=== PATIENT | female | born 1980 | race American Indian/Alaskan Native ===

== ENCOUNTER 2017-07-22 18:47 | Emergency (ER) | payer MEDICAID ==
[2017-07-22 18:55] VITALS: BP 115/73; PULSE 86; RESP 16; TEMP 97.4; O2SAT 99
--- NOTE | 2017-07-22 19:28 | ED PDOC ---
HPI: Abdomen Time Seen by Provider: 07/22/17 19:03 Chief Complaint (Nursing): Female Genitourinary History Per: Patient Onset/Duration Of Symptoms: Days Outside of [place] travel?: No Current Symptoms Are (Timing): Still Present Location Of Pain/Discomfort: Suprapubic Quality Of Discomfort: Cramping Associated Symptoms: denies: Fever, Chills, Nausea, Vomiting, Diarrhea Additional Complaint(s): Hx of asthma, p/w suprapubic pain, states she was due for her menstrual period around the of this month, states that from the 02-11 she had persistent heavy vaginal bleeding that has now resolved, but still has cramping lower abdominal/suprapubic pain, concerned that she is having a miscarriage. States she is taking prenatals and is actively trying to have a child. Denies nausea, vomiting, diarrhea, constipation, urinary symptoms. No fevers, chills. Past Medical History Reviewed: Historical Data, Nursing Documentation, Vital Signs Vital Signs: Last Vital Signs Temp 97.4 F L 07/22/17 18:51 Pulse 86 07/22/17 18:51 Resp 16 07/22/17 18:51 BP 115/73 07/22/17 18:51 Pulse Ox 99 07/22/17 19:30 - Medical History PMH: Asthma - Family History Family History: States: Unknown Family Hx - Home Medications Home Medications: Ambulatory Orders Medication Instructions Recorded Naproxen [Naprosyn] 500 mg PO BID #30 tablet 07/22/17 - Allergies Allergies/Adverse Reactions: Allergies Allergy/AdvReac Type Severity Reaction Status Date / Time coconut Allergy ITCHING Verified 07/22/17 18:51 Review of Systems ROS Statement: Except As Marked, All Systems Reviewed And Found Negative Gastrointestinal: Positive for: Abdominal Pain Physical Exam - Reviewed Nursing Documentation Reviewed: Yes Vital Signs Reviewed: Yes - Physical Exam Appears: Positive for: Well, Non-toxic, No Acute Distress Head Exam: Positive for: ATRAUMATIC, NORMAL INSPECTION, NORMOCEPHALIC Skin: Positive for: Normal Color, Warm, DRY Eye Exam: Positive for: EOMI, Normal appearance, PERRL ENT: Positive for: Normal ENT Inspection Neck: Positive for: Normal, Painless ROM Cardiovascular/Chest: Positive for: Regular Rate, Rhythm Respiratory: Positive for: CNT, Normal Breath Sounds Gastrointestinal/Abdominal: Positive for: Normal Exam, Soft Back: Positive for: Normal Inspection Extremity: Positive for: Normal ROM Neurologic/Psych: Positive for: Alert, Oriented - Laboratory Results Result Diagrams: 07/22/17 19:50 07/22/17 19:50 - ECG O2 Sat by Pulse Oximetry: 99 Medical Decision Making Medical Decision Makin:15PM A/P: Hx of asthma p/w suprapubic pain, resolved VB -concerned for possible miscarriage v. threatened Ab v. ectopic v. normal -will get labs, U/S -patient pain free at this time, comfortable appearing, normal vitals -will re-eval 10:00PM EXAM: US , Transvaginal CLINICAL HISTORY: 36 years old, female; Signs and symptoms; Lmp or gestational age (in weeks): 03/17; Other: Bleeding; Additional info: 7 wks preg, vb TECHNIQUE: Real-time transvaginal obstetrical ultrasound of the maternal pelvis and a first trimester with image documentation. Transvaginal imaging was used for better evaluation of the fetus and adnexa. COMPARISON: No relevant prior studies available. FINDINGS: Gestation: No intrauterine gestational sac. Uterus/cervix: Endometrium: 0.7 cm in thickness. Closed cervix. Ovaries: Normal ovaries. No adnexal masses. Free fluid: No significant free fluid. IMPRESSION: 1. No intrauterine gestation. DDX: Early IUP, missed , ectopic . Explained to patient that there are no signs of , possibly representing completed Ab, advised patient to followup with [facility] in 1 - 2 days for checkup. Return precautions given. Disposition - Clinical Impression Clinical Impression: Abdominal cramping - Disposition Referrals: Shirley Zhu MD [Family Provider[facility] - [facility]] Disposition: Routine/Home Disposition Time: 22:04 Condition: STABLE Additional Instructions: Please followup with your [facility] as soon as possible. Prescriptions: Naproxen [Naprosyn] 500 mg PO BID #30 tablet Instructions: Acute Abdomen (Belly Pain), Adult (DC) Forms: [employer] (Austrian)
[2017-07-22 20:03] LABS: HEMOGLOBIN 12.4 g/dL (12.0-16.0); MEAN CELL VOLUME 93.2 fl (81.0-99.0); MEAN CORPUSCULAR HEMOGLOBIN 30.6 pg (27.0-31.0); MEAN CORPUSCULAR HGB CONC 32.8 g/dL (33.0-37.0); RBC 4.04 Mil/uL (3.80-5.20); RED CELL DISTRIBUTION WIDTH 14.9 % (11.5-14.5); WHITE BLOOD COUNT 5.2 K/uL (4.8-10.8)
[2017-07-22 20:17] LABS: BLOOD UREA NITROGEN 12 mg/dl (7-17); GFR AFRICAN-AMERICAN > 60; GFR NON-AFRICAN AMERICAN > 60
--- NOTE | 2017-07-22 21:32 | US ---
EXAM: US , Transvaginal CLINICAL HISTORY: 36 years old, female; Signs and symptoms; Lmp or gestational age (in weeks): 07/10/17; Other: Bleeding; Additional info: 7 wks preg, vb TECHNIQUE: Real-time transvaginal obstetrical ultrasound of the maternal pelvis and a first trimester with image documentation. Transvaginal imaging was used for better evaluation of the fetus and adnexa. COMPARISON: No relevant prior studies available. FINDINGS: Gestation: No intrauterine gestational sac. Uterus/cervix: Endometrium: 0.7 cm in thickness. Closed cervix. Ovaries: Normal ovaries. No adnexal masses. Free fluid: No significant free fluid. IMPRESSION: 1. No intrauterine gestation. DDX: Early IUP, missed , ectopic .
== END 2017-07-22 22:36 | disposition home or self-care (01) ==
LOC: H.ER 18:47
DX: O20.9 Hemorrhage in early pregnancy, unspecified (principal); O26.891 Other specified pregnancy related conditions, first trimester; Z3A.01 Less than 8 weeks gestation of pregnancy

== ENCOUNTER 2017-08-28 20:23 | Emergency (ER) | payer MEDICAID ==
[2017-08-28 20:28] VITALS: RESP 18; O2SAT 100
--- NOTE | 2017-08-28 21:44 | ED PDOC ---
HPI: Headache Time Seen by Provider: 08/28/17 21:27 Chief Complaint (Nursing): Headache Chief Complaint (Provider): Headache History Per: Patient History/Exam Limitations: no limitations Onset/Duration Of Symptoms: Days (x1) Current Symptoms Are (Timing): Still Present Additional Complaint(s): 36 y/o female with no significant pmhx, who presents to ED for evaluation of headache x1 day. Patient states her headache started this morning after getting to work and it was intermittent at the time. She reports the headache affects her entire head. She states after arriving home the headache became steady and she reports feeling dizzy and like she might pass out. Patient states headache is worst of her life. Past Medical History Reviewed: Historical Data, Nursing Documentation, Vital Signs Vital Signs: Last Vital Signs Temp 98.2 F 08/28/17 20:26 Pulse 85 08/28/17 20:26 Resp 18 08/28/17 20:26 BP 101/63 08/28/17 20:26 Pulse Ox 100 08/28/17 20:26 - Medical History PMH: Asthma - Surgical History Surgical History: No Surg Hx - Family History Family History: States: Unknown Family Hx - Home Medications Home Medications: Ambulatory Orders Medication Instructions Recorded Naproxen [Naprosyn] 500 mg PO BID #30 tablet 07/22/17 - Allergies Allergies/Adverse Reactions: Allergies Allergy/AdvReac Type Severity Reaction Status Date / Time coconut Allergy ITCHING Verified 07/22/17 18:51 Review of Systems ROS Statement: Except As Marked, All Systems Reviewed And Found Negative Neurological: Positive for: Headache, Dizziness Physical Exam - Reviewed Nursing Documentation Reviewed: Yes Vital Signs Reviewed: Yes - Physical Exam Appears: Positive for: Non-toxic, No Acute Distress Head Exam: Positive for: ATRAUMATIC, NORMAL INSPECTION, NORMOCEPHALIC Skin: Positive for: Normal Color, Warm Eye Exam: Positive for: Normal appearance Neck: Positive for: Normal, Painless ROM Respiratory: Negative for: Respiratory Distress Neurologic/Psych: Positive for: Alert - ECG O2 Sat by Pulse Oximetry: 100 (RA) Pulse Ox Interpretation: Normal Medical Decision Making Medical Decision Makin:37 Plan: --EKG --CMP --Urine --CBC --PTT/PT --Toradol 15mg IVP Endorsed pending head CT to [facility] Scribe Attestation: Documented by Bashir Cerda, acting as a scribe for Arabella Peres PA-C. Provider Scribe Attestation: All medical record entries made by the scribe were at my direction and personally dictated by me. I have reviewed the chart and agree that the record accurately reflects my personal performance of the history, physical exam, medical decision making, and the department course for this patient. I have also personally directed, reviewed, and agree with the discharge instructions and disposition. Disposition - Clinical Impression Clinical Impression: Headache - Patient ED Disposition Is Patient to be Admitted: Transfer of Care - Disposition Disposition: Transfer of Care Disposition Time: 23:51 Condition: STABLE Instructions: Headache, Adult Forms: [employer] (Maltese)
--- NOTE | 2017-08-29 00:04 | ED PDOC ---
- ECG O2 Sat by Pulse Oximetry: 100 (RA) Medical Decision Making Medical Decision Making: Case was signed out to entry writer pending CT head. 12:50 am: patient refused CT head, states she wants to leave. Risks and dangers of signing out against medical advice were discussed with patient including but not limited to worsening of current condition and possible . Patient verbalized understanding of these risks and still wishes to leave against medical advice. Advised PMD follow or return any time if worse. Disposition - Clinical Impression Clinical Impression: Headache - POA Present On Arrival: None - Disposition Referrals: [facility] [Outside] Disposition: AGAINST MEDICAL ADVICE Disposition Time: 00:51 Condition: UNKNOWN Additional Instructions: You have decided to leave against medical advice. Follow up with primary care doctor. Take tylenol or advil for headache. Instructions: Headache, Adult, Leaving Against Medical Advice Forms: [employer] (Sudanese)
[2017-08-29 04:07] VITALS: BP 116/78; PULSE 74; TEMP 98.4
--- NOTE | 2017-08-29 10:21 | CARD ---
APPROVED REPORT EKG Measurement Heart [id number] <Conclusion> Normal sinus rhythm Normal ECG
== END 2017-08-29 01:00 | disposition left against medical advice (07) ==
LOC: H.ER 20:23
DX: R51 Headache (principal)
CPT/HCPCS: 81025; 93005; 96374; 99285; J1885